=== PATIENT | male | born 1940 | race Caucasian/White ===

== ENCOUNTER 2020-05-06 11:28 | Emergency (ER) | payer MEDICARE ==
[2020-05-06 11:47] LABS: BASOPHILS % (AUTO) 0.3 % (0.0-5.0); EOSINOPHILS % (AUTO) 3.1 % (0.0-8.0); HEMATOCRIT 45.1 % (42-54); LYMPHOCYTES % (AUTO) 35.8 % (21.0-51.0); MEAN CORPUSCULAR HEMOGLOBIN 28.3 pg (27.0-33.0); MEAN CORPUSCULAR HGB CONC 34.4 g/dL (32.0-36.0); MEAN CORPUSCULAR VOLUME 82.4 fL (79-99); MONOCYTES % (AUTO) 9.2 % (3.0-13.0); NEUTROPHILS % (AUTO) 51.3 % (40.0-77.0); PLATELET COUNT (AUTO) 158 K/uL (130-400); RED BLOOD CELL COUNT(AUTO) 5.47 MIL/uL (4.50-6.20); RED CELL DISTRIBUTION WIDTH 12.4 % (11.0-15.5); WHITE BLOOD COUNT (AUTO) 5.9 K/uL (4.8-10.8)
[2020-05-06] MEDS ORDERED: ASPIRIN 325 MG TABLET ONE (11:50)
[2020-05-06 11:55] LABS: CREATININE 0.9 mg/dL (0.5-1.5); POTASSIUM 4.1 mmol/L (3.5-5.1)
[2020-05-06 12:00] LABS: BILIRUBIN,TOTAL 0.4 mg/dL (0.2-1.0); INR 0.91 (0.85-1.15); PARTIAL THROMBOPLASTIN TIME 23.6 SEC (26.3-35.5); PROTHROMBIN TIME 9.9 SEC (9.6-11.6); TOTAL PROTEIN, SERUM 7.8 g/dL (6.0-8.3)
[2020-05-06 13:10] LABS: APPEARANCE,URINE Clear (CLEAR); BILIRUBIN,URINE Negative (NEGATIVE); COLOR,URINE Yellow (YELLOW); GLUCOSE, URINE (UA) Negative (NEGATIVE); KETONES,URINE Negative (NEGATIVE); LEUKOCYTE ESTERASE ,URINE Negative (NEGATIVE); NITRATE,URINE Negative (NEGATIVE); OCCULT BLOOD,URINE Negative (NEGATIVE); PH,URINE 7.5 (5.0-8.0); PROTEIN,URINE Negative (NEGATIVE); UROBILINOGEN,URINE 0.2 mg/dL (0.2-1.0)
[2020-05-09] MEDS ORDERED: ENOXAPARIN SODIUM 120 MG/0.8ML SQ ONE (04:45)
== END 2020-05-06 16:53 | disposition home or self-care (01) ==
LOC: EDH 11:28
DX: I10 Essential (primary) hypertension (principal); Z87.891 Personal history of nicotine dependence
CPT/HCPCS: 36415; 71045; 80053; 81003; 82550; 84484; 85025; 85610; 85730; 93005

== ENCOUNTER 2021-06-04 09:33 | Day surgery (SDC) | payer MEDICARE ==
[2021-05-30 15:02] LABS: BASOPHILS % (AUTO) 0.8 % (0.0-5.0); EOSINOPHILS % (AUTO) 3.7 % (0.0-8.0); HEMATOCRIT 42.3 % (42-54); LYMPHOCYTES % (AUTO) 33.2 % (21.0-51.0); MEAN CORPUSCULAR HEMOGLOBIN 27.4 pg (27.0-33.0); MEAN CORPUSCULAR HGB CONC 32.9 g/dL (32.0-36.0); MEAN CORPUSCULAR VOLUME 83.3 fL (79-99); MONOCYTES % (AUTO) 12.4 % (3.0-13.0); NEUTROPHILS % (AUTO) 49.7 % (40.0-77.0); PLATELET COUNT (AUTO) 186 K/uL (130-400); RED BLOOD CELL COUNT(AUTO) 5.08 MIL/uL (4.50-6.20); RED CELL DISTRIBUTION WIDTH 12.9 % (11.0-15.5); WHITE BLOOD COUNT (AUTO) 4.9 K/uL (4.8-10.8)
[2021-05-30 15:03] LABS: APPEARANCE,URINE Clear (CLEAR); BILIRUBIN,URINE Negative (NEGATIVE); COLOR,URINE Dark Yellow (YELLOW); GLUCOSE, URINE (UA) Negative (NEGATIVE); KETONES,URINE Negative (NEGATIVE); LEUKOCYTE ESTERASE ,URINE Negative (NEGATIVE); NITRATE,URINE Negative (NEGATIVE); OCCULT BLOOD,URINE Negative (NEGATIVE); PH,URINE 5.5 (5.0-8.0); PROTEIN,URINE Negative (NEGATIVE); UROBILINOGEN,URINE 0.2 mg/dL (0.2-1.0)
[2021-05-30 15:15] LABS: CREATININE 0.9 mg/dL (0.5-1.5); POTASSIUM 4.4 mmol/L (3.5-5.1)
[2021-05-30 15:22] LABS: INR 1.03 (0.85-1.15); PROTHROMBIN TIME 11.2 SEC (9.6-11.6)
[2021-05-30 15:23] LABS: PARTIAL THROMBOPLASTIN TIME 25.9 SEC (26.3-35.5)
[2021-06-03 12:01] VITALS: BP 142/73
[2021-06-04] VITALS (11 sets, daily range): BP systolic 108–150; BP diastolic 58–95
[~2021-06-04] VITALS: Ht 170.2 cm; Wt 79.2 kg
[~2021-06-04 09:33] MED LIST: 0.9% NACL 500ML IV.SOLN 500 ML IV SCH; AMLO-257 PO; ASPI-1443 PO; ATOR40TA71 PO; LOSA25TA41 PO; METO-408 PO; TICA90TA PO
[2021-06-04] MEDS ORDERED: BIVALIRUDIN 250 MG/VIAL IV ONE (11:54)
[2021-06-04] MEDS ORDERED: HEPARIN 10,000 UNIT/10ML (1,000 UNIT/ML) VIAL ONE (11:54)
[2021-06-04] MEDS ORDERED: NITROGLYCERIN 50MG VIAL IV ONE (11:54)
[2021-06-04] MEDS ORDERED: IOHEXOL-350 50ML VIAL IV ONE (11:55)
[2021-06-04] MEDS ORDERED: FENTANYL CITRATE PF 50 MCG/1 ML 2ML VIAL ONE (11:55)
[2021-06-04] MEDS ORDERED: IOHEXOL 350 MG/ML 100ML INFUS..BTL IV ONE (11:55)
[2021-06-04] MEDS ORDERED: MIDAZOLAM HCL 1 MG/ML 2ML VIAL ONE (11:55)
[2021-06-04] MEDS ORDERED: SODIUM BICARB 50MEQ 50ML VIAL 50 ML ONE (11:55)
[2021-06-04] MEDS ORDERED: LIDOCAINE HCL 400MG/20ML VIAL ONE (11:56)
[2021-06-04] MEDS ORDERED: IOHEXOL-350 75 ML VIAL IV ONE (13:01)
[2021-06-04] MEDS ORDERED: TICAGRELOR 90 MG TABLET ONE (13:48)
[2021-06-04] MEDS ORDERED: 0.9%NACL 1000ML 1,000 ML IV SCH (14:00)
== END 2021-06-04 19:05 | disposition home or self-care (01) ==
LOC: DAH 09:33
PROVIDERS: ATTEND Internal Medicine Cardiovascular Disease
DX: I25.110 Atherosclerotic heart disease of native coronary artery with unstable angina pectoris (principal); I10 Essential (primary) hypertension; E78.5 Hyperlipidemia, unspecified; E11.59 Type 2 diabetes mellitus with other circulatory complications; Z95.5 Presence of coronary angioplasty implant and graft; Z98.890 Other specified postprocedural states; Z79.899 Other long term (current) drug therapy; Z79.01 Long term (current) use of anticoagulants
CPT/HCPCS: 36415 ×2; 71045; 80048; 81003; 82948 ×2; 85025; 85347 ×2; 85610; 85730; 93005; 93454; 93799; A4215; A4216; A4221; A4222; A4223 ×3; A4335; A4606; A4663; C1725; C1760; C1761; C1769 ×2; C1874 ×2; C1887 ×2; C1894 ×2; C9600; J1644 ×2; J2250; J3010; J3490 ×3; J7030; Q9965; Q9967 ×3; 99156; 99157; J0583